=== PATIENT | male | born 1990 | race Two or more races ===

== ENCOUNTER 2018-08-14 14:07 | Emergency (ER) | payer MEDICARE, MEDICAID ==
[~2018-08-14] VITALS: Ht 152.4 cm; Wt 59.0 kg
[2018-08-14 15:10] VITALS: BP 152/90
[2018-08-14 15:42] LABS: Basophils # (auto) 0.1 uL; Basophils % (auto) 1.4 % (0.0-2.0); Eosinophils # (auto) 0 uL; Eosinophils % (auto) 0.5 % (0.0-7.0); Hematocrit 51.5 % (41.0-53.0); Hemoglobin 17.4 g/dL (13.5-17.5); Lymphocytes # (auto) 1.4 uL; Lymphocytes % (auto) 14.8 % (10.0-50.0); Mean Corpuscular Hemoglobin 32.8 pg (28.0-32.0); Mean Corpuscular Hgb Conc. 33.8 g/dL (32.0-36.0); Monocytes # (auto) 0.8 uL; Neutrophils % (auto) 75.3 % (37.0-80.0); Nucleated Red Blood Cells % 0.1 %; Platelet Count (auto) 373 10^3/uL (140-450); Red Blood Cells 5.31 10^6/uL (4.5-5.90); White Blood Cell 9.4 10^3/uL (4.4-10.8)
[2018-08-14 16:00] LABS: Albumin 3.7 g/dL (3.4-5.0); Calcium 8.6 mg/dL (8.5-10.1); Potassium 4.3 mmol/L (3.5-5.1)
[2018-08-14 16:03] LABS: BUN/Creatinine Ratio 7.6; Bilirubin, Total 0.5 mg/dL (0.2-1.0); Total Protein 7.9 g/dL (6.4-8.2)
== END 2018-08-14 16:46 | disposition home or self-care (01) ==
LOC: EDBD 14:07 → ER 14:19
DX: G40.409 Other generalized epilepsy and epileptic syndromes, not intractable, without status epilepticus (principal)
CPT/HCPCS: 36415; 70450; 80053; 85025; 94761

== ENCOUNTER 2018-10-07 18:49 | Emergency (ER) | payer MEDICARE, MEDICAID ==
[~2018-10-07] VITALS: Ht 154.9 cm; Wt 87.1 kg
[2018-10-07 20:30] LABS: Urine Bacteria NONE SEEN /hpf (None Seen); Urine Blood Negative /uL (Negative); Urine Specific Gravity 1.022 (1.001-1.035); Urine WBC 1 /hpf (0 - 3)
[2018-10-07 21:00] VITALS: BP 126/84
[2018-10-07 21:20] LABS: Alcohol, Urine < 3.0 mg/dL (0-5); Amphetamine Screen, Urine NEGATIVE (NEGATIVE); Barbiturate Scree,Urine NEGATIVE (NEGATIVE); Benzodiazephine Screen, Urine NEGATIVE (NEGATIVE); Cannabinoid Screen, Urine NEGATIVE (NEGATIVE); Cocaine Screen, Urine NEGATIVE (NEGATIVE); Opiate Scree,Urine NEGATIVE (NEGATIVE); Phencyclidine Screen, Urine NEGATIVE (NEGATIVE)
[2018-10-07] MEDS ORDERED: POLYETHYLENE GLYCOL 17 GM PWDR PO ONE (21:45)
[2018-10-07] MEDS ORDERED: LACTULOSE 20Gm/30ML SOLN PO ONE (21:45)
[2018-10-07 21:47] LABS: Eosinophils # (auto) 0.1 uL; Lymphocytes # (auto) 1.9 uL; Mean Corpuscular Hgb Conc. 34.2 g/dL (32.0-36.0)
[2018-10-07 21:49] LABS: Basophils # (auto) 0 uL; Basophils % (auto) 0.6 % (0.0-2.0); Eosinophils % (auto) 0.7 % (0.0-7.0); Hematocrit 52.4 % (41.0-53.0); Hemoglobin 17.9 g/dL (13.5-17.5); Lymphocytes % (auto) 23.7 % (10.0-50.0); Mean Corpuscular Volume 96.5 fL (80.0-100.0); Monocytes # (auto) 0.9 uL; Monocytes % (auto) 10.7 % (0.0-12.0); Neutrophils # (auto) 5.1 uL; Neutrophils % (auto) 64.3 % (37.0-80.0); Nucleated Red Blood Cells % 0.2 %; Platelet Count (auto) 280 10^3/uL (140-450); Red Blood Cells 5.43 10^6/uL (4.5-5.90); Red Cell Distribution Width 14.4 % (11.8-14.3)
[2018-10-07 22:02] LABS: Albumin 3.6 g/dL (3.4-5.0); Calcium 8.5 mg/dL (8.5-10.1); Magnesium 2.3 mg/dL (1.6-2.6)
[2018-10-07 22:08] LABS: BUN/Creatinine Ratio 12.8; Bilirubin, Total 0.4 mg/dL (0.2-1.0); Total Protein 7.8 g/dL (6.4-8.2)
[2018-10-07] MEDS ORDERED: POLYETHYLENE GLYCOL 17 GM PWDR ONE (22:18)
[2018-10-07] MEDS ORDERED: LACTULOSE 20Gm/30ML SOLN ONE (22:18)
== END 2018-10-07 23:07 | disposition home or self-care (01) ==
LOC: ER 18:49
DX: K56.41 Fecal impaction (principal)
CPT/HCPCS: 36415; 74176; 80053; 80307; 81001; 82150; 83690; 83735; 84702; 85025